=== PATIENT | female | born 1975 | race Caucasian/White ===

== ENCOUNTER → 2017-08-20 | Outpatient (REF) | payer OTHER ==
[2017-08-20 18:42] LABS: BASO % 0.2 % (0.0-1.0); EOS # 0.2 10^3/uL (0.0-0.50); EOS % 2.9 % (0.0-3.0); HEMATOCRIT 38.3 % (36.0-47.0); HEMOGLOBIN 12.4 g/dl (12.0-15.5); IMMATURE GRANULOCYTE % 0.4 % (0-3.0); LYMPH # 1.2 10^3/uL (1.5-4.5); MEAN CORPUSCULAR HEMOGLOBIN 26.9 pg (27.0-33.0); MEAN CORPUSCULAR HGB CONC 32.4 g/dl (32.0-36.5); MEAN CORPUSCULAR VOLUME 83.1 fl (80.0-96.0); MONO # 0.4 10^3/uL (0.0-0.8); MONO % 8.2 % (0.0-5.0); NEUTROPHILS # 3.3 10^3/uL (1.8-7.7); NEUTROPHILS % 64.3 % (36.0-66.0); PLATELET COUNT, AUTOMATED 291 10^3/uL (150-450); RED BLOOD COUNT 4.61 10^6/uL (4.00-5.40); RED CELL DISTRIBUTION WIDTH 14.5 % (11.5-14.5); WHITE BLOOD COUNT 5.1 10^3/uL (4.0-10.0)
[2017-08-20 19:38] LABS: ERYTHROCYTE SEDIMENTATION RATE 13 mm/hr (0-20)
[2017-08-20 19:57] LABS: C REACTIVE PROTEIN QUANTITATIV 0.63 MG/DL (0.00-0.30)
[2017-08-23 00:07] LABS: ANTINUCLEAR ANTIBODIES DIRECT Negative (Negative)
[2017-08-23 00:08] LABS: QUANTIFERON GOLD TB Negative (Negative); TB Test (QFT) Antigen 0.08 IU/mL (.); TB Test (QFT) Antigen Minus Ni 0.01 IU/mL (.); TB Test (QFT) Mitogen >10.00 IU/mL (.); TB Test (QFT) Nil 0.07 IU/mL (.)
== END ==
LOC: M SFHCLERA 11:05
DX: L52 Erythema nodosum (principal)

== ENCOUNTER → 2017-08-20 | Outpatient (CLI) | payer OTHER | LOC: M LRY 11:17 | DX: L52 Erythema nodosum (principal) | CPT/HCPCS: 71046; 86140 ==